=== PATIENT | female | born 1935 | race Caucasian/White ===

== ENCOUNTER 2017-01-28 10:26 | Emergency (ER) | payer MEDICARE ==
[~2017-01-28] VITALS: Ht 162.6 cm; Wt 58.2 kg
[~2017-01-28 10:26] MED LIST: AZIT250T PO
[2017-01-28 10:58] LABS: BASOPHILS % (AUTO) 0.2 % (0-1); EOSINOPHILS # (AUTO) 0.1 X10'3 (0-0.9); EOSINOPHILS % (AUTO) 1.6 % (0-6); HEMATOCRIT 43.6 % (35.0-45.0); HEMOGLOBIN 14.7 g/dl (12.0-16.0); LYMPHOCYTES # (AUTO) 0.8 X10'3 (1.1-4.8); LYMPHOCYTES % (AUTO) 9.6 % (21-51); MEAN CORPUSCULAR HEMOGLOBIN 30.7 PG (27.0-31.0); MEAN CORPUSCULAR HGB CONC 33.7 % (33.0-36.5); MEAN CORPUSCULAR VOLUME 91.2 FL (78-98); MEAN PLATELET VOLUME 6.6 FL (7.4-10.4); MONOCYTES # (AUTO) 0.7 X10'3 (0-0.9); MONOCYTES % (AUTO) 8.9 % (2-12); NEUTROPHILS # (AUTO) 6.5 X10'3 (1.8-7.7); NEUTROPHILS % (AUTO) 79.7 % (42-75); PLATELET COUNT 214 X10'3 (140-440); RED BLOOD COUNT 4.78 X10'6 (4.20-5.60); RED CELL DISTRIBUTION WIDTH 13.6 % (11.5-14.5); WHITE BLOOD COUNT 8.2 X10'3 (4.5-11.0)
[2017-01-28 11:28] LABS: ALANINE AMINOTRANSFERASE 33 U/L (12-78); ALBUMIN 3.6 G/DL (3.4-5.0); ALBUMIN/GLOBULIN RATIO 0.9 (1.1-1.5); ALKALINE PHOSPHATASE 148 IU/L (46-116); ANION GAP 8 (8-16); ASPARTATE AMINO TRANSFERASE 27 U/L (10-37); BILIRUBIN,TOTAL 0.8 MG/DL (0.1-1.0); BLOOD UREA NITROGEN 16 MG/DL (7-18); BUN/CREATININE RATIO 17.2 (6.6-38.0); CALCIUM 9.2 MG/DL (8.5-10.1); CHLORIDE 93 MMOL/L (99-107); CREATININE 0.93 MG/DL (0.40-0.90); GLUCOSE 138 MG/DL (70-104); POTASSIUM 4.2 MMOL/L (3.5-5.1); SODIUM 134 MMOL/L (135-145); TOTAL CARBON DIOXIDE 32.8 MMOL/L (24-32); TOTAL PROTEIN 7.5 G/DL (6.4-8.2); eGFR 58 ML/MIN
[2017-01-28] MEDS ORDERED: ipratropium/albuterol 3ml nebule NEB ONE (12:05)
[2017-01-28] MEDS ORDERED: methylPREDNISolone sod succ 125mg/2ml vial IV ONE (12:05)
[2017-01-28] MEDS ORDERED: albuterol 2.5 MG/3 ML nebule NEB ONE (12:25)
[2017-01-28] MEDS ORDERED: PRED20TA PO (12:25)
[2017-01-28] MEDS ORDERED: AZIT250T PO (12:25)
[2017-01-28 13:01] VITALS: BP 137/102
== END 2017-01-28 13:03 | disposition home or self-care (01) ==
LOC: ER 10:27
DX: J20.9 Acute bronchitis, unspecified (principal); J44.0 Chronic obstructive pulmonary disease with (acute) lower respiratory infection; I10 Essential (primary) hypertension; Z90.710 Acquired absence of both cervix and uterus; Z98.890 Other specified postprocedural states; Z88.8 Allergy status to other drugs, medicaments and biological substances; Z91.018 Allergy to other foods
CPT/HCPCS: 36415; 71020; 80053; 83605; 85025; 87040; 94640; 94760; 96374; 99285; J2930

== ENCOUNTER 2017-09-12 16:02 | Emergency (ER) | payer MEDICARE ==
[~2017-09-12] VITALS: Ht 162.6 cm; Wt 53.0 kg
[2017-09-12 17:50] LABS: CLARITY,URINE SLIGHTLY CLOUDY (Clear); COLOR,URINE YELLOW (Yellow); GLUCOSE, URINE NEGATIVE (Neg); KETONES,URINE 15 mg/dl (Neg); LEUKOCYTE ESTERASE ,URINE TRACE (Neg); NITRITES, URINE NEGATIVE (Neg); OCCULT BLOOD,URINE NEGATIVE (Neg); PH,URINE 5.5 (4.8-8.0); PROTEIN,URINE 100 mg/dl (Neg)
[2017-09-12 17:56] LABS: UA COLLECTION TYPE CLN CATCH MIDSTREAM
[2017-09-12 17:58] LABS: BACTERIA,URINE FEW /HPF (Neg); MUCUS STRANDS MANY /LPF (Neg); RBC,URINE 0-2 /HPF (0-2); SQUAMOUS EPITHELIAL CELL,UR MANY /LPF (FEW)
[2017-09-12 18:11] LABS: BASOPHILS % (AUTO) 0.6 % (0-1); EOSINOPHILS # (AUTO) 0.3 X10'3 (0-0.9); EOSINOPHILS % (AUTO) 4.9 % (0-6); HEMATOCRIT 41.8 % (35.0-45.0); HEMOGLOBIN 14.1 g/dl (12.0-16.0); LYMPHOCYTES # (AUTO) 1.2 X10'3 (1.1-4.8); LYMPHOCYTES % (AUTO) 20.2 % (21-51); MEAN CORPUSCULAR HEMOGLOBIN 29.6 PG (27.0-31.0); MEAN CORPUSCULAR HGB CONC 33.6 % (33.0-36.5); MEAN CORPUSCULAR VOLUME 88.1 FL (78-98); MEAN PLATELET VOLUME 7.3 FL (7.4-10.4); MONOCYTES # (AUTO) 0.7 X10'3 (0-0.9); MONOCYTES % (AUTO) 11.2 % (2-12); NEUTROPHILS # (AUTO) 3.8 X10'3 (1.8-7.7); NEUTROPHILS % (AUTO) 63.1 % (42-75); PLATELET COUNT 229 X10'3 (140-440); RED BLOOD COUNT 4.74 X10'6 (4.20-5.60)
[2017-09-12 18:21] LABS: PROTHROMBIN TIME 10.1 SECONDS (9.0-12.0)
[2017-09-12 18:29] LABS: ALANINE AMINOTRANSFERASE 33 U/L (12-78); ALBUMIN 4.1 G/DL (3.4-5.0); ALBUMIN/GLOBULIN RATIO 1.1 (1.1-1.5); ALKALINE PHOSPHATASE 116 IU/L (46-116); ANION GAP 6 (8-16); ASPARTATE AMINO TRANSFERASE 23 U/L (10-37); BILIRUBIN,TOTAL 0.7 MG/DL (0.1-1.0); BLOOD UREA NITROGEN 19 MG/DL (7-18); BUN/CREATININE RATIO 20.7 (6.6-38.0); CHLORIDE 103 MMOL/L (99-107); CREATININE 0.92 MG/DL (0.40-0.90); GLUCOSE 114 MG/DL (70-104); POTASSIUM 4.4 MMOL/L (3.5-5.1); SODIUM 138 MMOL/L (135-145); TOTAL CARBON DIOXIDE 28.6 MMOL/L (24-32); TOTAL PROTEIN 7.7 G/DL (6.4-8.2); eGFR 58 ML/MIN
[2017-09-12] MEDS ORDERED: LACT10SO PO ×2 (19:41→19:43)
[2017-09-12] MEDS ORDERED: OLME1TAB21 PO ×2 (19:41→19:43)
[2017-09-12 19:54] VITALS: BP 212/120
== END 2017-09-12 19:56 | disposition home or self-care (01) ==
LOC: ER 16:03
DX: K59.00 Constipation, unspecified (principal); R10.32 Left lower quadrant pain; J44.9 Chronic obstructive pulmonary disease, unspecified; I10 Essential (primary) hypertension; I49.9 Cardiac arrhythmia, unspecified; Z90.49 Acquired absence of other specified parts of digestive tract; Z90.710 Acquired absence of both cervix and uterus; Z87.891 Personal history of nicotine dependence; Z91.09 Other allergy status, other than to drugs and biological substances; Z79.899 Other long term (current) drug therapy
CPT/HCPCS: 36415; 74176; 80053; 81001; 85025; 85610; 99285

== ENCOUNTER 2017-09-15 20:45 | Emergency (ER) | payer MEDICARE ==
[~2017-09-15] VITALS: Ht 162.6 cm; Wt 52.2 kg
[~2017-09-15 20:45] MED LIST changes: +LACT10SO PO; +OLME1TAB21 PO
[2017-09-15] MEDS ORDERED: morphine 4 MG/ML inj SYRINge IV PRN (21:40)
[2017-09-15] MEDS ORDERED: ondansetron/PF 4mg/2ml inj IV ONE (21:40)
[2017-09-15] MEDS ORDERED: normal saline 1000ML IV soln IVB ONE (21:40)
[2017-09-15 22:31] LABS: ALANINE AMINOTRANSFERASE 25 U/L (12-78); ALBUMIN 3.9 G/DL (3.4-5.0); ALBUMIN/GLOBULIN RATIO 1.2 (1.1-1.5); ALKALINE PHOSPHATASE 93 IU/L (46-116); ANION GAP 7 (8-16); ASPARTATE AMINO TRANSFERASE 18 U/L (10-37); BILIRUBIN,TOTAL 0.6 MG/DL (0.1-1.0); BLOOD UREA NITROGEN 17 MG/DL (7-18); BUN/CREATININE RATIO 17.7 (6.6-38.0); CALCIUM 9.8 MG/DL (8.5-10.1); CHLORIDE 97 MMOL/L (99-107); CREATININE 0.96 MG/DL (0.40-0.90); GLUCOSE 123 MG/DL (70-104); POTASSIUM 4.6 MMOL/L (3.5-5.1); SODIUM 134 MMOL/L (135-145); TOTAL CARBON DIOXIDE 30.5 MMOL/L (24-32); TOTAL PROTEIN 7.2 G/DL (6.4-8.2); eGFR 56 ML/MIN
[2017-09-15] MEDS ORDERED: bisacodyl 10mg suppository rectal RC STA (22:42)
[2017-09-15] MEDS ORDERED: lactulose 20gm/30ml cup PO ONE (22:45)
[2017-09-15] MEDS ORDERED: BISA10SU60 RC (23:00)
[2017-09-15] MEDS ORDERED: MAGN296S50 PO (23:00)
[2017-09-15] MEDS ORDERED: polyethylene glycol 3350 17gm powd pack PO ONE (23:00)
[2017-09-15] MEDS ORDERED: methylnaltrexone br 12mg/0.6ml inj***SubQ only SQ ONE (23:15)
[2017-09-15] MEDS ORDERED: fentaNYL/PF 50MCG/1 ML 2ML syringe IV ONE (23:15)
[2017-09-16 00:08] VITALS: BP 180/60
== END 2017-09-16 00:11 | disposition home or self-care (01) ==
LOC: ER 20:46
DX: K59.00 Constipation, unspecified (principal); E86.0 Dehydration; R10.30 Lower abdominal pain, unspecified; I10 Essential (primary) hypertension; J44.9 Chronic obstructive pulmonary disease, unspecified; Z90.49 Acquired absence of other specified parts of digestive tract; Z90.710 Acquired absence of both cervix and uterus; Z90.89 Acquired absence of other organs; Z91.040 Latex allergy status; Z91.018 Allergy to other foods; Z79.2 Long term (current) use of antibiotics; Z79.899 Other long term (current) drug therapy
CPT/HCPCS: 36415; 74018; 80053; 96361; 96372; 96374; 96375; 99285; J2270; J2405; J3010; J7030

== ENCOUNTER 2020-02-11 11:42 | Emergency (ER) | payer MEDICARE ==
[~2020-02-11] VITALS: Ht 162.6 cm; Wt 57.1 kg
[~2020-02-11 11:42] MED LIST changes: +ASPI-611 PO; +ATOR10TA87 PO; -AZIT250T PO; -LACT10SO PO; +LACT1CAP26 PO; +LEVO500T2 PO; +METO-411 PO; +METR500T PO; -OLME1TAB21 PO; +POTA25TA8 PO
[2020-02-11 12:35] LABS: CLARITY,URINE CLEAR (Clear); COLOR,URINE STRAW (Yellow); GLUCOSE, URINE NEGATIVE (Neg); KETONES,URINE NEGATIVE (Neg); LEUKOCYTE ESTERASE ,URINE NEGATIVE (Neg); NITRITES, URINE NEGATIVE (Neg); OCCULT BLOOD,URINE NEGATIVE (Neg); PH,URINE 6.5 (4.8-8.0); PROTEIN,URINE NEGATIVE (Neg); UROBILINOGEN,URINE 0.2 E.U/dL (0.2-1.0)
[2020-02-11 12:40] LABS: UA COLLECTION TYPE CLN CATCH MIDSTREAM
--- NOTE | 2020-02-11 12:45 | NUR ---
patient refused oral or iv pain medication,Opadrianao aware.
[2020-02-11 12:47] LABS: EOSINOPHILS # (AUTO) 0.2 X10'3 (0-0.9); NEUTROPHILS # (AUTO) 2.9 X10'3 (1.8-7.7)
[2020-02-11 12:48] LABS: BASOPHILS % (AUTO) 0.6 % (0-1); EOSINOPHILS % (AUTO) 4.8 % (0-6); HEMATOCRIT 43.2 % (35.0-45.0); HEMOGLOBIN 14.2 g/dl (12.0-16.0); LYMPHOCYTES # (AUTO) 0.7 X10'3 (1.1-4.8); LYMPHOCYTES % (AUTO) 16.4 % (21-51); MEAN CORPUSCULAR HEMOGLOBIN 29.1 PG (27.0-31.0); MEAN CORPUSCULAR HGB CONC 32.9 g/dL (33.0-36.5); MEAN CORPUSCULAR VOLUME 88.5 FL (78-98); MEAN PLATELET VOLUME 7.3 FL (7.4-10.4); MONOCYTES # (AUTO) 0.4 X10'3 (0-0.9); NEUTROPHILS % (AUTO) 69.2 % (42-75); PLATELET COUNT 210 X10'3 (140-440); RED BLOOD COUNT 4.88 X10'6 (4.20-5.60); RED CELL DISTRIBUTION WIDTH 14.6 % (11.5-14.5); WHITE BLOOD COUNT 4.2 X10'3 (4.5-11.0)
[2020-02-11 12:49] VITALS: BP 183/80
[2020-02-11 12:59] LABS: ALANINE AMINOTRANSFERASE 34 U/L (12-78); ALBUMIN 4.2 G/DL (3.4-5.0); ALBUMIN/GLOBULIN RATIO 1.1 (1.1-1.5); ALKALINE PHOSPHATASE 107 IU/L (46-116); AMYLASE 38 U/L (25-115); ANION GAP 11 (8-16); ASPARTATE AMINO TRANSFERASE 26 U/L (10-37); BILIRUBIN,TOTAL 1.2 MG/DL (0.1-1.0); BLOOD UREA NITROGEN 17 MG/DL (7-18); BUN/CREATININE RATIO 22.1 (6.6-38.0); CALCIUM 9.9 MG/DL (8.5-10.1); CHLORIDE 102 MMOL/L (99-107); CREATININE 0.77 MG/DL (0.40-0.90); GLUCOSE 108 MG/DL (70-104); LIPASE 95 U/L (73-393); POTASSIUM 4.3 MMOL/L (3.5-5.1); SODIUM 140 MMOL/L (135-145); TOTAL CARBON DIOXIDE 26.7 MMOL/L (24-32); eGFR 71 ML/MIN
[2020-02-11] MEDS ORDERED: AMOX-117 PO (14:18)
== END 2020-02-11 14:28 | disposition home or self-care (01) ==
LOC: ER 11:43
DX: K57.92 Diverticulitis of intestine, part unspecified, without perforation or abscess without bleeding (principal); R10.32 Left lower quadrant pain; I10 Essential (primary) hypertension; J44.9 Chronic obstructive pulmonary disease, unspecified; Z90.89 Acquired absence of other organs; Z90.710 Acquired absence of both cervix and uterus; Z72.89 Other problems related to lifestyle; Z91.040 Latex allergy status; Z91.048 Other nonmedicinal substance allergy status; Z79.2 Long term (current) use of antibiotics; Z79.899 Other long term (current) drug therapy
CPT/HCPCS: 36415; 74176; 80053; 81003; 82150; 83690; 85025; 99284

== ENCOUNTER 2020-07-29 17:28 | Emergency (ER) | payer MEDICARE ==
[~2020-07-29] VITALS: Ht 162.6 cm; Wt 54.5 kg
[2020-07-29 17:35] VITALS: BP 161/69
[2020-07-29] MEDS ORDERED: bacitracin 15gm ointment TP ONE (18:50)
== END 2020-07-29 19:50 | disposition home or self-care (01) ==
LOC: ER 17:28
DX: S51.812A Laceration without foreign body of left forearm, initial encounter (principal); S00.81XA Abrasion of other part of head, initial encounter; S00.31XA Abrasion of nose, initial encounter; I10 Essential (primary) hypertension; J44.9 Chronic obstructive pulmonary disease, unspecified; Z91.040 Latex allergy status; Z91.048 Other nonmedicinal substance allergy status; Z79.82 Long term (current) use of aspirin; Z79.2 Long term (current) use of antibiotics; Z90.49 Acquired absence of other specified parts of digestive tract; Z90.710 Acquired absence of both cervix and uterus; Z79.899 Other long term (current) drug therapy; W01.10XA Fall on same level from slipping, tripping and stumbling with subsequent striking against unspecified object, initial encounter; Z91.81 History of falling; Y93.89 Activity, other specified; Y92.89 Other specified places as the place of occurrence of the external cause; Y99.8 Other external cause status
CPT/HCPCS: 73090; 99284

== ENCOUNTER 2020-10-27 11:28 | Emergency (ER) | payer MEDICARE ==
[~2020-10-27] VITALS: Ht 162.6 cm; Wt 54.5 kg
[2020-10-27 12:01] VITALS: BP 183/80
[2020-10-27] MEDS ORDERED: TRAM50TA2 PO (13:27)
== END 2020-10-27 14:17 | disposition home or self-care (01) ==
LOC: ER 11:29
DX: S93.402A Sprain of unspecified ligament of left ankle, initial encounter (principal); I10 Essential (primary) hypertension; J44.9 Chronic obstructive pulmonary disease, unspecified; Z90.710 Acquired absence of both cervix and uterus; Z98.890 Other specified postprocedural states; Z91.041 Radiographic dye allergy status; Z91.040 Latex allergy status; Z79.82 Long term (current) use of aspirin; Z79.899 Other long term (current) drug therapy; X50.1XXA Overexertion from prolonged static or awkward postures, initial encounter; Y93.89 Activity, other specified; Y92.89 Other specified places as the place of occurrence of the external cause; Y99.8 Other external cause status
CPT/HCPCS: 73610; 73630; 99284

== ENCOUNTER 2021-09-19 16:00 | Emergency (ER) | payer MEDICARE ==
[~2021-09-19] VITALS: Ht 162.6 cm; Wt 43.8 kg
[~2021-09-19 16:00] MED LIST changes: +POTA25TA40 PO; -POTA25TA8 PO
[2021-09-19] MEDS ORDERED: famotidine/PF 10 mg/ml inj IV ONE (16:05)
[2021-09-19] MEDS ORDERED: ondansetron/PF 4mg/2ml inj IV ONE (16:05)
[2021-09-19] MEDS ORDERED: normal saline 1000ML IV soln IVB ONE (16:05)
[2021-09-19 17:08] LABS: BASOPHILS % (AUTO) 0.8 % (0-1); EOSINOPHILS # (AUTO) 0.1 X10'3 (0-0.9); EOSINOPHILS % (AUTO) 2.3 % (0-6); HEMATOCRIT 44.2 % (35.0-45.0); HEMOGLOBIN 14.8 g/dl (12.0-16.0); LYMPHOCYTES % (AUTO) 17.7 % (21-51); MEAN CORPUSCULAR HEMOGLOBIN 29.7 PG (27.0-31.0); MEAN CORPUSCULAR HGB CONC 33.4 g/dL (33.0-36.5); MEAN CORPUSCULAR VOLUME 89.1 FL (78-98); MEAN PLATELET VOLUME 7.9 FL (7.4-10.4); MONOCYTES # (AUTO) 0.6 X10'3 (0-0.9); MONOCYTES % (AUTO) 9.9 % (2-12); NEUTROPHILS % (AUTO) 69.3 % (42-75); PLATELET COUNT 252 X10'3 (140-440); RED BLOOD COUNT 4.96 X10'6 (4.20-5.60); RED CELL DISTRIBUTION WIDTH 14.4 % (11.5-14.5); WHITE BLOOD COUNT 5.8 X10'3 (4.5-11.0)
[2021-09-19 17:33] LABS: ALANINE AMINOTRANSFERASE 20 U/L (12-78); ALBUMIN 4.5 G/DL (3.4-5.0); ALBUMIN/GLOBULIN RATIO 1.2 (1.1-1.5); ALKALINE PHOSPHATASE 75 IU/L (46-116); ANION GAP 18 (8-16); ASPARTATE AMINO TRANSFERASE 22 U/L (10-37); BILIRUBIN,TOTAL 1.1 MG/DL (0.1-1.0); BLOOD UREA NITROGEN 32 MG/DL (7-18); BUN/CREATININE RATIO 34.8 (6.6-38.0); CALCIUM 9.8 MG/DL (8.5-10.1); CHLORIDE 99 MMOL/L (99-107); CREATININE 0.92 MG/DL (0.40-0.90); GLUCOSE 66 MG/DL (70-104); POTASSIUM 4.6 MMOL/L (3.5-5.1); SODIUM 139 MMOL/L (135-145); TOTAL CARBON DIOXIDE 22.4 MMOL/L (24-32); TOTAL PROTEIN 8.4 G/DL (6.4-8.2); eGFR 58 ML/MIN
[2021-09-19 17:58] VITALS: BP 169/91
== END 2021-09-19 18:00 | disposition home or self-care (01) ==
LOC: ER 16:01
DX: K22.2 Esophageal obstruction (principal); Z20.822 Contact with and (suspected) exposure to COVID-19; I10 Essential (primary) hypertension; J44.9 Chronic obstructive pulmonary disease, unspecified; Z91.040 Latex allergy status; Z91.09 Other allergy status, other than to drugs and biological substances; Z98.890 Other specified postprocedural states; Z90.710 Acquired absence of both cervix and uterus
CPT/HCPCS: 36415; 71045; 80053; 85025; 87811; 96374; 96375; 99284; J2405; J3490; J7030; 99285

== ENCOUNTER 2022-05-19 09:13 | Emergency (ER) | payer MEDICARE ==
[~2022-05-19] VITALS: Ht 162.6 cm; Wt 49.4 kg
[2022-05-19 09:31] VITALS: BP 171/63
== END 2022-05-19 11:43 | disposition home or self-care (01) ==
LOC: ER 09:14
DX: M79.671 Pain in right foot (principal); I10 Essential (primary) hypertension; J45.909 Unspecified asthma, uncomplicated; J44.9 Chronic obstructive pulmonary disease, unspecified; Z90.49 Acquired absence of other specified parts of digestive tract; Z91.040 Latex allergy status; Z88.5 Allergy status to narcotic agent; Z79.899 Other long term (current) drug therapy; Z79.82 Long term (current) use of aspirin
CPT/HCPCS: 73630; 99283

== ENCOUNTER 2024-03-08 00:46 | Observation (INO) | payer MEDICARE ==
[~2024-03-08] VITALS: Ht 162.6 cm; Wt 53.2 kg
[2024-03-08 01:16] LABS: BASOPHILS % (AUTO) 0.2 % (0-1); EOSINOPHILS # (AUTO) 0.1 X10'3 (0-0.9); EOSINOPHILS % (AUTO) 1.9 % (0-6); HEMATOCRIT 41.9 % (35.0-45.0); HEMOGLOBIN 14.1 g/dl (12.0-16.0); LYMPHOCYTES # (AUTO) 0.4 X10'3 (1.1-4.8); LYMPHOCYTES % (AUTO) 5.1 % (21-51); MEAN CORPUSCULAR HEMOGLOBIN 29.3 PG (27.0-31.0); MEAN CORPUSCULAR HGB CONC 33.7 g/dL (33.0-36.5); MEAN CORPUSCULAR VOLUME 86.9 FL (78-98); MONOCYTES # (AUTO) 0.4 X10'3 (0-0.9); MONOCYTES % (AUTO) 5.7 % (2-12); NEUTROPHILS # (AUTO) 6.3 X10'3 (1.8-7.7); NEUTROPHILS % (AUTO) 87.1 % (42-75); PLATELET COUNT 249 X10'3 (140-440); RED BLOOD COUNT 4.82 X10'6 (4.20-5.60); RED CELL DISTRIBUTION WIDTH 15.6 % (11.5-14.5); WHITE BLOOD COUNT 7.2 X10'3 (4.5-11.0)
[2024-03-08] MEDS ORDERED: PANT-47 PO (01:25)
[2024-03-08] MEDS ORDERED: AMLO5TAB16 PO (01:25)
[2024-03-08] MEDS ORDERED: METO25TA6 PO (01:25)
[2024-03-08] MEDS ORDERED: OLME40TA18 PO (01:25)
[2024-03-08 01:34] LABS: ALANINE AMINOTRANSFERASE 15 U/L (12-78); ALBUMIN 3.7 G/DL (3.4-5.0); ALBUMIN/GLOBULIN RATIO 0.8 (1.1-1.5); ALKALINE PHOSPHATASE 113 IU/L (46-116); ANION GAP 10 (8-16); ASPARTATE AMINO TRANSFERASE 16 U/L (10-37); BILIRUBIN,TOTAL 1.3 MG/DL (0.1-1.0); BLOOD UREA NITROGEN 15 MG/DL (7-18); CALCIUM 9.7 MG/DL (8.5-10.1); CHLORIDE 98 MMOL/L (99-107); CREATININE 0.75 MG/DL (0.40-0.90); GLUCOSE 153 MG/DL (70-104); LIPASE 29 U/L (16-77); POTASSIUM 3.9 MMOL/L (3.5-5.1); SODIUM 135 MMOL/L (135-145); TOTAL CARBON DIOXIDE 27.2 MMOL/L (24-32); TOTAL PROTEIN 8.2 G/DL (6.4-8.2); eCRCL 43 ML/MIN; eGFR 73 ML/MIN
[2024-03-08] MEDS: normal saline 1000ml 1,000 ML IV ONE ×2 (01:40→09:22)
[2024-03-08] MEDS: morphine 2 MG/ML inj. syringe IV ONE (02:10)
[2024-03-08] MEDS: ondansetron/PF 4mg/2ml inj IV ONE ×2 (02:10→09:16)
[2024-03-08] MEDS ORDERED: DICY20TA17 PO (05:22)
[2024-03-08] MEDS ORDERED: LACT-373 PO (05:22)
[2024-03-08] MEDS: polyethylene glycol 3350 17gm powd pack PO STA (09:16)
[2024-03-08] MEDS ORDERED: morphine 2 MG/ML inj. syringe IV PRN ×2 (11:55)
[2024-03-08] MEDS ORDERED: magnesium hydroxide 30ml (MOM) UD suspension PO PRN (11:55)
[2024-03-08] MEDS ORDERED: HYDROcodone/acetaminophen 10/325mg tab PO PRN (11:55)
[2024-03-08] MEDS ORDERED: mag hydrox/Alum hydrox/simeth 30ml oral suspension PO PRN (11:55)
[2024-03-08] MEDS ORDERED: acetaminophen 325mg tablet PO PRN ×2 (11:55)
[2024-03-08 12:19] LABS: PROTHROMBIN TIME 10.7 SECONDS (9.0-12.0)
[2024-03-08] MEDS: pantoprazole 40 MG vial IV ONE (12:30)
[2024-03-08] MEDS: normal saline 1000ml 1,000 ML IV SCH (13:08)
[2024-03-08 13:16] LABS: BILIRUBIN,URINE SMALL (Neg); COLOR,URINE YELLOW (Yellow); GLUCOSE, URINE NEGATIVE (Neg); KETONES,URINE NEGATIVE (Neg); LEUKOCYTE ESTERASE ,URINE NEGATIVE (Neg); NITRITES, URINE NEGATIVE (Neg); OCCULT BLOOD,URINE NEGATIVE (Neg); PROTEIN,URINE NEGATIVE (Neg); UROBILINOGEN,URINE 0.2 E.U/dL (0.2-1.0)
[2024-03-08 13:21] LABS: UA COLLECTION TYPE NON-SPECIFIED
[2024-03-08 13:22] LABS: CLARITY,URINE SLIGHTLY CLOUDY (Clear); WBC,URINE 0-4 /HPF (0-4)
[2024-03-08 13:23] LABS: BACTERIA,URINE FEW /HPF (Neg); MUCUS STRANDS FEW /LPF (Neg); RBC,URINE 0-2 /HPF (0-2); SQUAMOUS EPITHELIAL CELL,UR MANY /LPF (FEW)
[2024-03-08] MEDS: metoprolol tartrate 1mg/ml inj IV PRN (14:39)
[2024-03-08] MEDS ORDERED: ipratropium 0.5 MG/2.5ML nebule IH PRN (15:00)
[2024-03-08] MEDS: HYDROcodone/acetaminophen 5mg/325mg tablet PO PRN (15:21)
[2024-03-08 15:45] VITALS: BP 153/87; PULSE 97; RESP 16; TEMP 97.8; O2SAT 97
[2024-03-08 16:34] VITALS: PULSE 94; RESP 14; O2SAT 96
[2024-03-08] MEDS: budesonide 0.5mg/2ml UD nebule IH ONE (17:45)
[2024-03-08] MEDS: ondansetron/PF 4mg/2ml inj IV PRN (18:17)
[2024-03-08 19:50] VITALS: BP 149/73; PULSE 97; RESP 22; TEMP 98.2; O2SAT 98
[2024-03-08 20:00] VITALS: RESP 22; O2SAT 98
[2024-03-08] MEDS ORDERED: heparin, porcine 5000 units/ml vial SQ SCH (20:00)
[2024-03-08] MEDS: metoclopramide 10mg tablet PO ONE (20:25)
[2024-03-08] MEDS: apixaban 2.5mg tablet PO SCH (20:46)
[2024-03-08] MEDS: docusate sod 100mg capsule PO SCH (20:46)
[2024-03-08] MEDS: atorvastatin 10mg tablet PO SCH (20:46)
[2024-03-08] MEDS: metoprolol tartrate 25mg tablet PO SCH (20:47)
[2024-03-08] MEDS: pantoprazole 40 MG vial IV SCH (20:48)
[2024-03-08 20:58] VITALS: PULSE 110; RESP 16; O2SAT 94
[2024-03-08 22:00] VITALS: BP 134/74; PULSE 85; RESP 16; TEMP 98.2; O2SAT 99
[2024-03-08] MEDS ORDERED: TIOT4MIS8 PO (22:37)
[2024-03-08] MEDS: OLODATEROL HCL IH SCH (22:43)
[2024-03-08] MEDS: TIOTROPIUM BR IH SCH (22:43)
[2024-03-09 02:00] VITALS: BP 110/56; PULSE 71; RESP 23; TEMP 98.8; O2SAT 98
[2024-03-09 04:55] VITALS: BP 144/73; PULSE 90; RESP 19; TEMP 97.1; O2SAT 95
[2024-03-09 07:05] VITALS: PULSE 81; RESP 18; O2SAT 90
[2024-03-09] MEDS: budesonide 0.5mg/2ml UD nebule IH SCH (07:05)
[2024-03-09 07:24] VITALS: PULSE 82; RESP 22
[2024-03-09 07:30] LABS: BASOPHILS % (AUTO) 0.3 % (0-1); EOSINOPHILS # (AUTO) 0.3 X10'3 (0-0.9); EOSINOPHILS % (AUTO) 4.9 % (0-6); HEMATOCRIT 35.3 % (35.0-45.0); HEMOGLOBIN 12.1 g/dl (12.0-16.0); LYMPHOCYTES # (AUTO) 0.5 X10'3 (1.1-4.8); LYMPHOCYTES % (AUTO) 8.9 % (21-51); MEAN CORPUSCULAR HEMOGLOBIN 30.6 PG (27.0-31.0); MEAN CORPUSCULAR HGB CONC 34.2 g/dL (33.0-36.5); MEAN CORPUSCULAR VOLUME 89.5 FL (78-98); MEAN PLATELET VOLUME 7.4 FL (7.4-10.4); MONOCYTES # (AUTO) 0.6 X10'3 (0-0.9); MONOCYTES % (AUTO) 12.2 % (2-12); NEUTROPHILS # (AUTO) 3.8 X10'3 (1.8-7.7); NEUTROPHILS % (AUTO) 73.7 % (42-75); PLATELET COUNT 192 X10'3 (140-440); RED BLOOD COUNT 3.95 X10'6 (4.20-5.60); RED CELL DISTRIBUTION WIDTH 15.8 % (11.5-14.5); WHITE BLOOD COUNT 5.2 X10'3 (4.5-11.0)
[2024-03-09] MEDS ORDERED: non-formulary drug (Metoprolol Tartrate 1 TAB) PO SCH (08:00)
[2024-03-09] MEDS ORDERED: atorvastatin 10mg tablet PO SCH (08:00)
[2024-03-09] MEDS ORDERED: pantoprazole 40mg Tablet.DR PO SCH (08:00)
[2024-03-09 08:04] LABS: ALANINE AMINOTRANSFERASE 9 U/L (12-78); ALBUMIN 2.5 G/DL (3.4-5.0); ALBUMIN/GLOBULIN RATIO 0.9 (1.1-1.5); ALKALINE PHOSPHATASE 77 IU/L (46-116); ASPARTATE AMINO TRANSFERASE 16 U/L (10-37); BILIRUBIN,TOTAL 1.2 MG/DL (0.1-1.0); BLOOD UREA NITROGEN 14 MG/DL (7-18); BUN/CREATININE RATIO 24.6 (10.0-20.0); CHLORIDE 106 MMOL/L (99-107); CHOL/HDL RATIO 1.8 (0.00-4.99); CHOLESTEROL 101 MG/DL (0-200); CREATININE 0.57 MG/DL (0.40-0.90); FREE T4 (FREE THYROXINE) 1.22 NG/DL (0.73-1.40); GLUCOSE 87 MG/DL (70-104); HDL CHOLESTEROL 57 MG/DL (35-60); POTASSIUM 4.3 MMOL/L (3.5-5.1); SODIUM 137 MMOL/L (135-145); TOTAL PROTEIN 5.4 G/DL (6.4-8.2); TRIGLYCERIDES 98 MG/DL (20-135); eCRCL 56 ML/MIN; eGFR > 90 ML/MIN
[2024-03-09 08:41] LABS: ANION GAP 8 (8-16); LDL CHOLESTEROL 34 MG/DL (50-100); TOTAL CARBON DIOXIDE 23.3 MMOL/L (24-32)
[2024-03-09 09:23] LABS: HEMOGLOBIN A1C 5.2 % (4.5-6.2)
[2024-03-09] MEDS: amLODIPine 5mg tablet PO SCH (10:01)
[2024-03-09 11:20] VITALS: BP 136/64; PULSE 74; RESP 18; TEMP 97.5; O2SAT 98
[2024-03-09] MEDS ORDERED: AMOX-580 PO (11:52)
[2024-03-09] MEDS ORDERED: piperacillin/tazo 3.375gm/50ml 50 ML IV SCH (16:00)
[2024-03-15] MEDS ORDERED: IPRA3AMP9 NEB (10:59)
[2024-03-15] MEDS ORDERED: PRED5TAB PO (13:08)
[2024-03-15] MEDS ORDERED: AMOX-419 PO (13:08)
== END 2024-03-09 16:45 | disposition home or self-care (01) ==
LOC: ER 00:46 → INTOOBSV 11:57 → ED HOLD 11:57 → EDBEDREQ 13:55 → PCU 3S 15:30
PROVIDERS: ADMIT Nurse Practitioner Family; ATTEND Nurse Practitioner Family
DX: K80.10 Calculus of gallbladder with chronic cholecystitis without obstruction (principal); K59.00 Constipation, unspecified; R11.2 Nausea with vomiting, unspecified; I10 Essential (primary) hypertension; E78.5 Hyperlipidemia, unspecified; J44.89 Other specified chronic obstructive pulmonary disease; I48.91 Unspecified atrial fibrillation; Z87.891 Personal history of nicotine dependence; Z90.49 Acquired absence of other specified parts of digestive tract; Z90.710 Acquired absence of both cervix and uterus; Z79.899 Other long term (current) drug therapy; Z98.890 Other specified postprocedural states
CPT/HCPCS: 94640; 96361; 96374; 96375; 99285; A4615; G0378; J2470; 36415; 74176; 76700; 78226; 80053; 80061; 81001; 83036; 83690; 84439; 84443; 85025; 85610; 87081; 87502; 87503; 93005; 94760; 96376; A9537; J2405; J3490; J7030